=== PATIENT | male | born 1955 | race Caucasian/White ===

== ENCOUNTER 2017-04-16 07:51 | Emergency (ER) | payer OTHER, BC ==
--- NOTE | 2017-04-16 08:39 | EDM.PDOC ---
ED HPI GENERAL MEDICAL PROBLEM - General Chief Complaint: Upper Extremity Injury/Pain Stated Complaint: INJURY TO L ELBOW Time Seen by Provider: 04/16/17 08:10 Source of Information: Reports: Patient, RN, RN Notes Reviewed History Limitations: Reports: No Limitations - History of Present Illness INITIAL COMMENTS - FREE TEXT/NARRATIVE: Patient presents to the ED at [facility] after he slipped and fell on the ice, landing on his left elbow. Patient complains of left elbow pain. No previous injury or trauma. Patient has limited ROM due to pain. Patient states the elbow is swollen. Patient has minimal tingling of the left upper extremity. Otherwise, no specific complaints. Patient states this is a work related injury. Onset: Today Left Elbow Pain Score (Numeric/FACES): 4 - Related Data Allergies Allergy/AdvReac Type Severity Reaction Status Date / Time No Known Allergies Allergy Verified 04/16/17 08:12 Home Meds: Home Meds . [No Known Home Meds] 04/16/17 [History] Past Medical History - Past Health History Medical/Surgical History: Denies Medical/Surgical History Social & Family History - Tobacco Use Smoking Status *Q: Never Smoker Review of Systems - Review of Systems Review Of Systems: See Below Constitutional: Denies: Chills, Fever, Weakness Respiratory: Denies: Shortness of Breath, Cough Cardiovascular: Denies: Chest Pain, Palpitations Musculoskeletal: Reports: Joint Pain, Joint Swelling, Muscle Pain Skin: Reports: No Symptoms Neurological: Reports: Tingling. Denies: Dizziness, Numbness, Paresthesia ED EXAM, GENERAL - Physical Exam Exam: See Below Exam Limited By: No Limitations General Appearance: Alert, No Apparent Distress Head: Atraumatic, Normocephalic Respiratory/Chest: No Respiratory Distress, Lungs Clear, Normal Breath Sounds Cardiovascular: Normal Peripheral Pulses, Regular Rate, Rhythm Peripheral Pulses: 2+: Radial (L), Radial (R) Extremities: Normal Capillary Refill, Joint Swelling (Left elbow; significant swelling consistent with a bursitis), Limited Range of Motion Neurological: Alert, Oriented Skin Exam: Warm, Dry, Intact, Normal Color Course - Vital Signs Last Recorded V/S: Last Vital Signs Temp 36.4 C 04/16/17 07:55 Pulse 106 H 04/16/17 07:55 Resp 18 04/16/17 07:55 BP 131/91 H 04/16/17 07:55 Pulse Ox 98 04/16/17 07:55 - Orders/Labs/Meds Orders: Active Orders 24 hr Category Date Time Status Elbow Min 3V Lt [CR] Stat Exams 04/16/17 08:13 Taken - Radiology Interpretation Free Text/Narrative:: Elbow, Left 3V min: Posttraumatic olecranon bursal effusion without underlying acute fracture or joint effusion See scanned report in EMR Departure - Departure Time of Disposition: 09:03 Disposition: Home, Self-Care 01 Condition: Good Clinical Impression: Effusion of left olecranon bursa, Encounter related to worker's compensation claim Injury of left elbow Qualifiers: Encounter type: initial encounter Qualified Code(s): S59.902A - Unspecified injury of left elbow, initial encounter Fall from slipping on ice Qualifiers: Encounter type: initial encounter Qualified Code(s): W00.9XXA - Unspecified fall due to ice and snow, initial encounter - Discharge Information Instructions: Elbow Bursitis Referrals: Phyllis Merrill NP [Ordering Only Provider] - Forms: ED Department Discharge Additional Instructions: 1. Stay well hydrated and rest 2. Apply ice several times a day 3. Rest and elevate often 4. Move elbow often to keep limber 5. See your Primary next week if elbow swelling is not any better 6. Call with any questions/concerns - Problem List Review Problem List Initiated/Reviewed/Updated: Yes - My Orders Last 24 Hours: My Active Orders 04/16/17 08:13 Elbow Min 3V Lt [CR] Stat - Assessment/Plan Last 24 Hours: My Active Orders 04/16/17 08:13 Elbow Min 3V Lt [CR] Stat
== END 2017-04-16 09:15 | disposition home or self-care (01) ==
LOC: VM.ED 07:51
DX: S59.902A Unspecified injury of left elbow, initial encounter (principal); M25.422 Effusion, left elbow; W00.9XXA Unspecified fall due to ice and snow, initial encounter; Y99.0 Civilian activity done for income or pay
CPT/HCPCS: 73080-LT; 99283